=== PATIENT | female | born 1985 | race Caucasian/White ===

== ENCOUNTER 2025-06-09 20:22 | Emergency (ER) | payer MEDICAID, OTHER, SELFPAY ==
[2025-06-09] VITALS (8 sets, daily range): BP systolic 149–212; BP diastolic 70–102; PULSE 81–108; RESP 12–20; TEMP 36.6; O2SAT 97–100; BMI 35.2
--- NOTE | 2025-06-09 20:49 | DI.RAD.S_ITS ---
PROCEDURE: XR CHEST 1V INDICATIONS: Chest Pain TECHNIQUE: One view of the chest was acquired. COMPARISON: None. FINDINGS: Surgical changes and devices: None. Lungs and pleura: Lungs are clear. No pleural effusions or pneumothorax. Mediastinum: Mediastinal contours appear normal. Heart size is normal. Bones and chest wall: No suspicious bony lesions. Overlying soft tissues appear unremarkable. IMPRESSION: No acute cardiopulmonary abnormality is seen. Dictated by: Bart Rouse M.D. on 06/09/2025 at 21:45 Approved by: Bart Rouse M.D. on 06/09/2025 at 21:45
--- NOTE | 2025-06-09 20:49 | EKG_ITS ---
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
[2025-06-09 21:25] LABS: Add Manual Diff / Slide Review NO; Hematocrit 43.5 % (36-46); Hemoglobin 14.5 g/dL (12.0-16.0); INR 1.0 (0.9-1.3); Lymphocytes Absolute Auto 3600 /uL (1100-4500); Mean Corpuscular HGB Conc 33.3 % (30-36); Mean Corpuscular Hemoglobin 27.1 PG (26-34); Mean Corpuscular Volume 81.3 fL (80-100); Platelet Count 253 X10^3/uL (150-400); Prothrombin Time 11.3 SECONDS (9.4-12.5)
[2025-06-09 21:28] LABS: PTT Partial Thromboplastin Tim 27 SECONDS (25.1-36.5)
[2025-06-09 21:29] LABS: Alanine Aminotransferase 61 IU/L (<35); Albumin 4.9 g/dL (3.5-5.0); Albumin Globulin Ratio 1.4 (1.0-2.8); Alkaline Phosphatase 74 U/L (38-126); Blood Urea Nitrogen 10 mg/dL (7-17); Calcium 9.2 mg/dL (8.4-10.2); Carbon Dioxide 21 mmol/L (22-32); Chloride 100 mmol/L (98-107); Creatine Kinase 1034 U/L (30-135); Estimated Glomerular Filt Rate > 60 mL/min (>60); Globulin 3.6 g/dL (1.7-4.1); Glucose 102 mg/dL (70-99); HEMOLYSIS 20 (0-50); Lipase 89 U/L (23-300); Magnesium 1.5 mg/dL (1.6-2.3); Potassium 4.0 mmol/L (3.4-5.1); Sodium 136 mmol/L (137-145); Total Protein 8.5 g/dL (6.3-8.2)
[2025-06-09 21:40] LABS: NT-proBNP (BNP-Adult 18+) 483 pg/mL (<125); Troponin I < 0.012 ng/mL (0.01-0.034)
[2025-06-09] MEDS: ASPIRIN 81 MG CHEW TAB 324 MG PO (22:22)
--- NOTE | 2025-06-09 23:45 | ED.CHESTPAIN ---
HPI - Chest Pain General Chief Complaint: Chest Pain Stated Complaint: PC ref, chest pain, dizzy Time Seen by Provider: 06/09/25 22:24 Source: patient Mode of arrival: Ambulatory Limitations: no limitations History of Present Illness HPI narrative: 40-year-old female with chart history of anxiety, bipolar disorder, ADHD, prior opiate dependence, ulcerative colitis, gastritis, remote cholecystectomy, polycystic ovaries, PID. States that she has one-week duration of cough that had been productive more recently dry, saw her doctor in clinic today had elevated blood pressure, labs were reportedly to be sent, but apparently did not make it to the lab, she is concerned about epigastric area discomfort, worsening abdominal pain, nausea nonbloody emesis. Increasing upper abdominal through the day. Lower chest and upper abdominal discomfort. No known history of coronary artery disease. Also had loosening of tooth of unclear significance, no facial trauma. Related Data Home Medications ?Medication ?Instructions ?Recorded ?Confirmed clonazepam 1 mg tablet 1 mg PO BID ##0 02/13/17 Previous Rx's ?Medication ?Instructions ?Recorded ondansetron 4 mg disintegrating 4 mg sublingual Q4HP PRN ##30 07/12/16 tablet (Zofran ODT) oxycodone 10 mg tablet 10 mg PO Q6HP PRN #30 tabs 02/06/17 oxycodone 10 mg tablet 10 mg PO 5XD PRN #40 tabs 02/13/17 escitalopram oxalate 20 mg tablet 20 mg PO QDAY #60 tabs 02/26/17 (Lexapro) prednisone 20 mg tablet 40 mg (2 x 20 mg) PO DAILY 5 days 06/10/25 #10 tabs sucralfate 1 gram tablet (Carafate) 1 g PO BID #60 tabs 06/10/25 Allergies Allergy/AdvReac Type Severity Reaction Status Date / Time morphine Allergy Mild VOMITING Verified 06/09/25 20:40 Sulfa (Sulfonamide Allergy Mild HYPERVENTIL Verified 06/09/25 20:40 Antibiotics) ATES codeine Allergy Unknown Verified 06/09/25 20:40 topical iodine AdvReac Unknown Uncoded 06/09/25 20:41 Patient History Family History (Updated 11/20/13 @ 00:00 by Maggie Webber) Mother Depression Exam Narrative Exam Narrative: GENERAL: Well-developed patient, in mild distress. HEAD: Atraumatic. Normocephalic. EYES: Pupils equal round and reactive. Extraocular motions intact. No scleral icterus. No injection or drainage. ENT: Nose without bleeding, purulent drainage. Throat without erythema, tonsillar hypertrophy or exudate. Airway patent. NECK: Trachea midline. Non tender CARDIOVASCULAR: Regular rate and rhythm without murmurs, gallops, or rubs. RESPIRATORY: Clear to auscultation. Breath sounds equal bilaterally. No wheezes, rales, or rhonchi. GASTROINTESTINAL: Mild epigastric discomfort, less tenderness left upper quadrant. No tenderness right upper quadrant or lower quadrants or periumbilical. EXTREMITIES: No edema or joint tenderness. BACK: Nontender without deformity or crepitance. No flank tenderness. NEURO: AOx3. Motor functions grossly nonfocal. SKIN: No rash or erythema of visible areas Initial Vital Signs Initial Vital Signs: Vital Signs Temperature 97.8 F 06/09/25 20:39 Pulse Rate 108 H 06/09/25 20:39 Respiratory Rate 20 06/09/25 20:39 Blood Pressure 212/102 H 06/09/25 20:39 Pulse Oximetry 100 06/09/25 20:39 Oxygen Delivery Method Room Air 06/09/25 20:39 Scores HEART Score Heart Score history: Slightly Suspicious Heart Score EKG: Normal Heart Score Age: < 45 years old Heart Score risk factors: No known risk factors Heart Score troponin: < or = to normal limit Heart Score Total: 0 Course Orders Ordered: Discontinued Medications Hydrocodone Bitart/Acetaminophen (Hydrocodone/Acet 5/325 Prepack) 1 bottle MISC DIRECTED ONE Stop: 06/10/25 03:05 Last Admin: 06/10/25 03:16 Dose: 1 bottle Documented By: Albuterol (Albuterol Hfa Prepack) 1 box MISC DIRECTED ONE Stop: 06/10/25 03:13 Last Admin: 06/10/25 03:16 Dose: 1 box Documented By: Albuterol/Ipratropium (Albuterol/Ipratropium 3 Ml Ampul) 3 ml INH NOW ONE Stop: 06/10/25 00:08 Last Admin: 06/10/25 00:29 Dose: 3 ml Documented By: JAIDA Aspirin (Aspirin 81 Mg Chew Tab) 324 mg PO NOW ONE Stop: 06/09/25 20:50 Last Admin: 06/09/25 22:22 Dose: 324 mg Documented By: AMANDA Hydromorphone HCl (Hydromorphone 1 Mg/Ml Syringe) 1 mg IM NOW ONE Stop: 06/10/25 00:12 Last Admin: 06/10/25 01:04 Dose: Not Given Documented By: ANGELA Hydromorphone HCl (Hydromorphone Hcl 0.5 Mg/0.5 Ml Syringe) 0.5 mg IV NOW ONE Stop: 06/10/25 01:04 Last Admin: 06/10/25 01:15 Dose: 0.5 mg Documented By: ANGELA Magnesium Sulfate (Magnesium Sulfate) 2 gm in 50 mls @ 150 mls/hr IV NOW ONE Stop: 06/10/25 01:18 Last Infusion: 06/10/25 02:01 Dose: Infused Documented By: DEBBY Co-signed By: KATYA Admin: 06/10/25 01:40 Dose: 150 mls/hr Documented By: ANGELA Co-signed By: Methylprednisolone (Methylprednisolone Succ 125 Mg/2 Ml Vial) 125 mg IV NOW ONE Stop: 06/10/25 00:08 Last Admin: 06/10/25 01:14 Dose: 125 mg Documented By: ANGELA Ondansetron HCl (Ondansetron 4 Mg Odt) 4 mg SL NOW ONE Stop: 06/10/25 00:12 Last Admin: 06/10/25 01:16 Dose: 4 mg Documented By: ANGELA Pantoprazole Sodium (Pantoprazole 40 Mg Vial) 40 mg IV NOW ONE Stop: 06/10/25 00:08 Last Admin: 06/10/25 01:14 Dose: 40 mg Documented By: ANGELA Sucralfate (Sucralfate 1 Gm/10 Ml Oral Susp) 1 gm PO NOW ONE Stop: 06/10/25 03:03 Last Admin: 06/10/25 03:16 Dose: 1 gm Documented By: Vital Signs Vital signs: Vital Signs - 8 hr 06/09/25 22:25 06/09/25 22:25 06/09/25 22:30 Pulse Rate 101 H Respiratory Rate Blood Pressure 185/92 H 171/84 H Pulse Oximetry 99 Oxygen Delivery Method Oxygen Flow Rate Fraction of Inspired Oxygen 06/09/25 22:30 06/09/25 23:00 06/09/25 23:01 Pulse Rate 98 H 87 Respiratory Rate Blood Pressure 196/91 H Pulse Oximetry 99 98 Oxygen Delivery Method Oxygen Flow Rate Fraction of Inspired Oxygen 06/09/25 23:01 06/09/25 23:30 06/09/25 23:31 Pulse Rate 92 H 81 Respiratory Rate 20 16 Blood Pressure 149/70 H Pulse Oximetry 98 97 Oxygen Delivery Method Room Air Oxygen Flow Rate Fraction of Inspired Oxygen 06/09/25 23:31 06/09/25 23:52 06/09/25 23:52 Pulse Rate 85 83 Respiratory Rate 15 12 Blood Pressure 167/84 H Pulse Oximetry 98 97 Oxygen Delivery Method Room Air Room Air Oxygen Flow Rate Fraction of Inspired Oxygen 06/10/25 00:00 06/10/25 00:00 06/10/25 00:29 Pulse Rate 79 85 Respiratory Rate 23 12 Blood Pressure 166/70 H Pulse Oximetry 97 99 Oxygen Delivery Method Room Air Oxygen Flow Rate 0 Fraction of Inspired Oxygen 21 06/10/25 00:30 06/10/25 01:00 06/10/25 01:30 Pulse Rate 82 83 80 Respiratory Rate 18 14 Blood Pressure Pulse Oximetry 98 97 Oxygen Delivery Method Room Air Oxygen Flow Rate Fraction of Inspired Oxygen 06/10/25 01:33 06/10/25 01:33 06/10/25 02:00 Pulse Rate 84 Respiratory Rate Blood Pressure 171/98 H 189/88 H Pulse Oximetry 97 Oxygen Delivery Method Room Air Oxygen Flow Rate Fraction of Inspired Oxygen 06/10/25 02:00 06/10/25 02:32 06/10/25 03:00 Pulse Rate 86 92 H 102 H Respiratory Rate 15 Blood Pressure Pulse Oximetry 96 98 99 Oxygen Delivery Method Room Air Oxygen Flow Rate Fraction of Inspired Oxygen MDM - Chest Pain Lab Data Attestation: I reviewed the patient's lab results. Lab results narrative: White blood cell count 58604, hemoglobin 14.5, platelets adequate. Glucose 102. Normal renal function, serum potassium. Slight low serum carbon dioxide, slight low sodium. Slight transaminitis, other liver functions unremarkable. Lipase normal. Troponin negative. 06/09/25 21:04 06/09/25 21:04 Labs: Lab Results 06/09/25 06/10/25 Range/Units 21:04 01:30 WBC 15.9 H (4.5-11.0) X10^3/uL RBC 5.35 H (4.0-5.2) X10^6/uL Hgb 14.5 (12.0-16.0) g/dL Hct 43.5 (36-46) % MCV 81.3 (80-100) fL MCH 27.1 (26-34) PG MCHC 33.3 (30-36) % RDW 14.7 (11.6-14.8) % Plt Count 253 (150-400) X10^3/uL Neut % (Auto) 70.8 (50-75) % Lymph % (Auto) 22.8 L (25-40) % Fleming % (Auto) 5.1 (3-14) % Eos % (Auto) 0.7 L (2-4) % Baso % (Auto) 0.6 (0-2) % Neut # (Auto) 34638 H (6820-2323) /uL Lymph # (Auto) 3600 (2444-4214) /uL Fleming # (Auto) 800 (0-900) /uL Eos # (Auto) 100 (0-450) /uL Baso # (Auto) 100 (0-100) /uL PT 11.3 (9.4-12.5) SECONDS INR 1.0 (0.9-1.3) APTT 27 (25.1-36.5) SECONDS Sodium 136 L (137-145) mmol/L Potassium 4.0 (3.4-5.1) mmol/L Chloride 100 (98-107) mmol/L Carbon Dioxide 21 L (22-32) mmol/L BUN 10 (7-17) mg/dL Creatinine 0.70 (0.52-1.04) mg/dL Estimated GFR > 60 (>60) mL/min BUN/Creatinine Ratio 14.3 (6-22) Glucose 102 H (70-99) mg/dL Calcium 9.2 (8.4-10.2) mg/dL Magnesium 1.5 L (1.6-2.3) mg/dL Total Bilirubin 0.5 (0.2-1.3) mg/dL AST 85 H (14-36) IU/L ALT 61 H (<35) IU/L Alkaline Phosphatase 74 (38-126) U/L Total Creatine Kinase 1034 H (30-135) U/L Troponin I < 0.012 0.020 (0.01-0.034) ng/mL NT-Pro-B Natriuret Pep 483 H (<125) pg/mL Total Protein 8.5 H (6.3-8.2) g/dL Albumin 4.9 (3.5-5.0) g/dL Globulin 3.6 (1.7-4.1) g/dL Albumin/Globulin Ratio 1.4 (1.0-2.8) Lipase 89 (23-300) U/L Imaging Data CT scan - abdomen/pelvis: Radiologist's Impression: [address] [address] [address] Scan Report Signed Patient: Kika Faust MR#: [id number] : 1985 Acct:[id number] Age/Sex: 40 / F Date of Service: 06/10/25 Loc: ED Accession Number: [id number] Procedure: CT abdomen pelvis wo con Ordering Provider: Ozzie Nolasco MD PROCEDURE: CT ABDOMEN PELVIS WO CON INDICATIONS: epig pain TECHNIQUE: CT of the abdomen and pelvis was obtained without intravenous contrast. Coronal and sagittal reformats were performed. For radiation dose reduction, the following was used: automated exposure control, adjustment of mA and/or kV according to patient size. COMPARISON: None. FINDINGS: Image quality: Diagnostic. Lower Chest: No significant findings. ABDOMEN: Liver: No contour-deforming mass. Hepatic steatosis. Gallbladder: Post cholecystectomy Biliary ducts: No biliary dilation. Pancreas: No ductal dilation. Spleen: Size is within normal limits. Adrenal Glands: No adrenal nodules. Kidneys and Ureters: No hydronephrosis. No contour-deforming mass. Stomach and Bowel: Normal colonic caliber, without significant wall thickening. Normal retrocecal appendix. Peritoneum: No abnormal intraperitoneal fluid. No free air. Ventral Wall: Small fat containing periumbilical hernia without adjacent stranding to suggest strangulation. Abdominal Nodes: No retroperitoneal or mesenteric adenopathy by size criteria. Vessels: Aorta and inferior vena cava are normal in size. PELVIS: Pelvic Organs: Unremarkable. Bladder: Unremarkable. Pelvic Nodes: No enlarged lymph nodes. Miscellaneous: No inguinal hernias are seen. Bones: No aggressive osseous abnormality. IMPRESSION: 1. Small fat containing periumbilical hernia without CT findings of strangulation. 2. Hepatic steatosis. Dictated by: aBrt Rouse M.D. on 06/10/2025 at 1:32 Approved by: Bart Rouse M.D. on 06/10/2025 at 1:34 Chest x-ray: Radiologist's Impression: [address] [address] XRay Report Signed Patient: Kika Faust MR#: [id number] : 1985 Acct:[id number] Age/Sex: 40 / F Date of Service: 06/09/25 Loc: ED Accession Number: [id number] Procedure: XR chest 1V Ordering Provider: Ruddy Ludwig MD PROCEDURE: XR CHEST 1V INDICATIONS: Chest Pain TECHNIQUE: One view of the chest was acquired. COMPARISON: None. FINDINGS: Surgical changes and devices: None. Lungs and pleura: Lungs are clear. No pleural effusions or pneumothorax. Mediastinum: Mediastinal contours appear normal. Heart size is normal. Bones and chest wall: No suspicious bony lesions. Overlying soft tissues appear unremarkable. IMPRESSION: No acute cardiopulmonary abnormality is seen. Dictated by: Bart Rouse M.D. on 06/09/2025 at 21:45 Approved by: Bart Rouse M.D. on 06/09/2025 at 21:45 ECG Data Attestation: I personally reviewed and interpreted this ECG as follows: Interpretation: 2056, sinus tachycardia with a rate of 108, no obvious ST segment elevation or depression changes. RI 112, QRS 80, QTC 455. MDM Narrative Medical decision making narrative: 40-year-old female with lower chest upper abdominal discomfort, history of gastritis. Afebrile, sirs screen negative. Some tenderness left upper quadrant and epigastrium. Wheeze on end expiration, recent cough. HEART Score =0. Chest x-ray pending. Labs pending. IV Solu-Medrol, nebulized Atrovent. DDx consider recurrence gastritis, JOSE, pancreatitis, biliary, colitis, muscular, aortic syndrome, ACS, pneumonia, other. Chest x-ray without obvious pulmonary infiltrates or acute changes or fluid overload. See radiology report. Lab data: White blood cell count 23150, hemoglobin 14.5, platelets adequate. Glucose 102. Normal renal function, serum potassium. Slight low serum carbon dioxide, slight low sodium. Slight transaminitis, other liver functions unremarkable. Lipase normal. Troponin negative. CT abdomen and pelvis shows small umbilical hernia not incarcerated/strangulated, no acute changes. See radiology report. 0230, Lung exam improved, no longer wheezing. Heart rate 90 improved. No oxygen requirement. No respiratory distress. Patient takes pantoprazole, will add oral Carafate, 1st dose given, prescription sent to her pharmacy. Prescription for prednisone 5 day pulse sent to her pharmacy. Albuterol inhaler/spacer advised and dispensed, 2 puffs 4 times daily for the next 1 week and then as needed. Recheck advised later this week with regular provider. Consider outpatient upper endoscopy in follow-up, contact information provided for local general surgery. Discharged home with family. Return precautions discussed. Discharge Plan Departure Patient Disposition: Home Clinical Impression: Acute epigastric pain, History of gastritis, Bilateral wheezing, Acute upper respiratory infection Instructions: DI for Asthma -- Adult, DI for Abdominal Pain-Adult Activity Restrictions/Additional Instructions: History of remote gallbladder surgery, prior gastritis, recent coughing, some slight wheeze on end expiration on lung exam, no oxygen requirement however, and speaking in full sentences without respiratory distress. Breathing treatment given. IV Solu-Medrol given. IV Protonix given to help protect your stomach. Wheezing seemed to go away. Chest x-ray without obvious pneumonia changes. Persisting epigastric area discomfort upper abdomen, with some mild tenderness. CT abdomen and pelvis was done, showing small fat containing periumbilical hernia without strangulation. Consider follow up with General surgery to have upper endoscopy evaluation of your stomach and duodenum, and perhaps to discuss elective surgical repair of the periumbilical hernia that isn't necessarily related to any current discomfort. Prednisone for wheezing to take in the next few days. Continue to take pantoprazole. We will add Carafate additional acid binding medication to help protect your stomach. Continue with your current chronic medications. Recheck with your regular doctor later this week. Follow up with General surgery for above consultations, though you might require referral from your primary care provider. Contact information given for local general surgeon Dr. Amador provided. Return to this/nearest emergency department for any change worsening symptoms or any concerns prior. Prescriptions: New sucralfate [Carafate] 1 gram tablet 1 g PO BID Qty: 60 0RF prednisone 20 mg tablet 40 mg PO DAILY 5 Days Qty: 10 0RF No Action ondansetron [Zofran ODT] 4 MG tablet,disintegrating 4 mg Sublingual Q4HP PRNQty: 30 3RF oxycodone 10 MG tablet 10 mg PO Q6HP PRNQty: 30 0RF clonazepam 1 MG tablet 1 mg PO BID Qty: 0 oxycodone 10 MG tablet 10 mg PO 5XD PRNQty: 40 0RF escitalopram oxalate [Lexapro] 20 MG tablet 20 mg PO QDAY Qty: 60 0RF Referrals: Delta Amador MD [Physician, General Surgery] Stand Alone Forms: Patient Portal/API
[2025-06-10] VITALS (9 sets, daily range): BP systolic 166–189; BP diastolic 70–98; PULSE 79–102; RESP 12–23; O2SAT 96–99
[2025-06-10] MEDS: ALBUTEROL/IPRATROPIUM 3 ML AMPUL INH (00:29)
[2025-06-10] MEDS: methylPREDNISolone succ 125 MG/2 ML VIAL IV (01:14)
[2025-06-10] MEDS: PANTOPRAZOLE 40 MG VIAL IV (01:14)
[2025-06-10] MEDS: ONDANSETRON 4 MG ODT SL (01:16)
--- NOTE | 2025-06-10 01:20 | DI.CT.S_ITS ---
PROCEDURE: CT ABDOMEN PELVIS WO CON INDICATIONS: epig pain TECHNIQUE: CT of the abdomen and pelvis was obtained without intravenous contrast. Coronal and sagittal reformats were performed. For radiation dose reduction, the following was used: automated exposure control, adjustment of mA and/or kV according to patient size. COMPARISON: None. FINDINGS: Image quality: Diagnostic. Lower Chest: No significant findings. ABDOMEN: Liver: No contour-deforming mass. Hepatic steatosis. Gallbladder: Post cholecystectomy Biliary ducts: No biliary dilation. Pancreas: No ductal dilation. Spleen: Size is within normal limits. Adrenal Glands: No adrenal nodules. Kidneys and Ureters: No hydronephrosis. No contour-deforming mass. Stomach and Bowel: Normal colonic caliber, without significant wall thickening. Normal retrocecal appendix. Peritoneum: No abnormal intraperitoneal fluid. No free air. Ventral Wall: Small fat containing periumbilical hernia without adjacent stranding to suggest strangulation. Abdominal Nodes: No retroperitoneal or mesenteric adenopathy by size criteria. Vessels: Aorta and inferior vena cava are normal in size. PELVIS: Pelvic Organs: Unremarkable. Bladder: Unremarkable. Pelvic Nodes: No enlarged lymph nodes. Miscellaneous: No inguinal hernias are seen. Bones: No aggressive osseous abnormality. IMPRESSION: 1. Small fat containing periumbilical hernia without CT findings of strangulation. 2. Hepatic steatosis. Dictated by: Bart Rouse M.D. on 06/10/2025 at 1:32 Approved by: Bart Rouse M.D. on 06/10/2025 at 1:34
[2025-06-10] MEDS: MAGNESIUM SULFATE 2 GM/50 ML PIGGYBACK IV (01:40)
[2025-06-10 02:09] LABS: Troponin I 0.020 ng/mL (0.01-0.034)
[2025-06-10] MEDS: ALBUTEROL HFA PREPACK 1 BOX MISC (03:16)
[2025-06-10] MEDS: SUCRALFATE 1 GM/10 ML ORAL SUSP PO (03:16)
== END 2025-06-10 03:28 | disposition home or self-care (01) ==
PROVIDERS: Emergency Medicine; Emergency Provider Emergency Medicine; Family Provider Family Medicine
DX: R10.13 Epigastric pain (principal); R06.2 Wheezing; J06.9 Acute upper respiratory infection, unspecified; Z87.19 Personal history of other diseases of the digestive system
CPT/HCPCS: 36415; 71045; 74176; 80053; 82550; 83690; 83735; 83880; 84484; 85025; 85610; 85730; 93005; 94640; 96365; 96375; 99284; J1171; J2470; J2919; J3475

== ENCOUNTER 2025-06-12 10:10 | Emergency (ER) | payer OTHER, SELFPAY ==
[2025-06-12] VITALS (20 sets, daily range): BP systolic 156–201; BP diastolic 68–119; PULSE 81–131; RESP 10–30; TEMP 36.8–36.9; O2SAT 94–99; BMI 34.4
--- NOTE | 2025-06-12 10:16 | DI.RAD.S_ITS ---
PROCEDURE: XR CHEST 1V INDICATIONS: Chest Pain TECHNIQUE: One view of the chest was acquired. COMPARISON: [facility], CR, XR CHEST 1V, 06/09/2025, 21:17. FINDINGS: Surgical changes and devices: None. Lungs and pleura: Lungs are clear. No pleural effusions or pneumothorax. Mediastinum: Mediastinal contours appear normal. Heart size is normal. Bones and chest wall: No suspicious bony lesions. Overlying soft tissues appear unremarkable. IMPRESSION: No acute cardiopulmonary abnormality is seen. Approved by: Joselito Lehman M.D. on 06/12/2025 at 10:56
--- NOTE | 2025-06-12 10:17 | EKG_ITS ---
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
[2025-06-12 12:40] LABS: Add Manual Diff / Slide Review NO; Hematocrit 42.3 % (36-46); Hemoglobin 14.1 g/dL (12.0-16.0); Lymphocytes Absolute Auto 1700 /uL (1100-4500); Mean Corpuscular HGB Conc 33.4 % (30-36); Mean Corpuscular Hemoglobin 27.4 PG (26-34); Mean Corpuscular Volume 82.1 fL (80-100); Platelet Count 216 X10^3/uL (150-400)
[2025-06-12 12:45] LABS: Alanine Aminotransferase 204 IU/L (<35); Albumin 4.6 g/dL (3.5-5.0); Albumin Globulin Ratio 1.4 (1.0-2.8); Alkaline Phosphatase 67 U/L (38-126); Blood Urea Nitrogen 11 mg/dL (7-17); Calcium 8.7 mg/dL (8.4-10.2); Carbon Dioxide 22 mmol/L (22-32); Chloride 103 mmol/L (98-107); Estimated Glomerular Filt Rate > 60 mL/min (>60); Globulin 3.4 g/dL (1.7-4.1); Glucose 129 mg/dL (70-99); Magnesium 1.9 mg/dL (1.6-2.3); Potassium 4.0 mmol/L (3.4-5.1); Total Protein 8.0 g/dL (6.3-8.2)
[2025-06-12 12:46] LABS: Creatine Kinase 226 U/L (30-135); HEMOLYSIS 53 (0-50); Lipase 80 U/L (23-300); Sodium 136 mmol/L (137-145)
--- NOTE | 2025-06-12 12:50 | ED.CHESTPAIN ---
HPI - Chest Pain <Catracho Jackson MD - Last Filed: 06/12/25 16:27> General Chief Complaint: Chest Pain Stated Complaint: Chest pain , High blood pressure sent from Dentist Time Seen by Provider: 06/12/25 12:31 History of Present Illness HPI narrative: This is a 40-year-old female complaining of diffuse muscle aches chest tightness, what she describes as a physical sense of ?adrenaline? and hypertension. Reports that a couple of weeks ago she had URI symptoms. Though substantially resolved however for the last few days she has been feeling as above and has been noted to be hypertensive and tachycardic on multiple occasions. She was seen previously at this emergency department on the 09 of June for these symptoms. She has also seen her primary care provider and was seen by a dentist today for a dental problem who told her that she did not have an infected tooth but she was noted to be hypertensive and tachycardic and she used referred to the emergency department. Says that she drinks 2 or 3 drinks a day he has not had any alcohol in the last several days but does not believe that she is withdrawing from alcohol. She takes Suboxone and has not had her dose changed recently and has been taking it. Has a history of being on benzodiazepines for anxiety, tapered off of those successfully. She has not noted fevers. In terms of cardiac risk factors she is a nonsmoker with no family history no history of elevated cholesterol no history of diabetes no history of hypertension. She did also have some vomiting a couple of days ago and she has epigastric pain now. She is complaining of pain in the midline posteriorly at the base of her neck. I reviewed the June 09 emergency department note. Chief complaint at that point was described as epigastric pain she was also noted to be wheezy. She was started on prednisone on that day. She also received IV steroids. Had a CT scan that was unremarkable. Noted to have leukocytosis at 15,000. I reviewed her current medications. She is not presently taking clonazepam. She has taken Suboxone 24 mg daily, Lexapro 20 mg daily, oral contraceptive, spironolactone which she started 2 months ago and Zofran as needed as well as Carafate and Protonix Related Data Home Medications ?Medication ?Instructions ?Recorded ?Confirmed clonazepam 1 mg tablet 1 mg PO BID ##0 02/13/17 Previous Rx's ?Medication ?Instructions ?Recorded ondansetron 4 mg disintegrating 4 mg sublingual Q4HP PRN ##30 07/12/16 tablet (Zofran ODT) oxycodone 10 mg tablet 10 mg PO Q6HP PRN #30 tabs 02/06/17 oxycodone 10 mg tablet 10 mg PO 5XD PRN #40 tabs 02/13/17 escitalopram oxalate 20 mg tablet 20 mg PO QDAY #60 tabs 02/26/17 (Lexapro) prednisone 20 mg tablet 40 mg (2 x 20 mg) PO DAILY 5 days 06/10/25 #10 tabs sucralfate 1 gram tablet (Carafate) 1 g PO BID #60 tabs 06/10/25 Allergies Allergy/AdvReac Type Severity Reaction Status Date / Time morphine Allergy Mild VOMITING Verified 06/09/25 20:40 Sulfa (Sulfonamide Allergy Mild HYPERVENTIL Verified 06/09/25 20:40 Antibiotics) ATES codeine Allergy Unknown Verified 06/09/25 20:40 topical iodine AdvReac Unknown Uncoded 06/09/25 20:41 Patient History <Catracho Jackson MD - Last Filed: 06/12/25 16:27> Family History (Updated 11/20/13 @ 00:00 by Maggie Webber) Mother Depression Social History Smoking Status: Current every day smoker Smoking Status: Current every day smoker Exam <Catracho Jackson MD - Last Filed: 06/12/25 16:27> Narrative Exam Narrative: Alert and appears anxious. Not obviously tremulous, tachycardia is in the low 100s as opposed to 130 at triage, blood pressure is also not alarmingly high at present. Skin is flushed and moist. Pupils are normal size equal and reactive extraocular movements are intact oral mucosa is moist head is atraumatic Neck is supple there is some tenderness at the baseline posteriorly no palpable mass Lungs have scattered wheezes otherwise clear Cardiac tachycardia regular rhythm and rate no murmur or gallop no friction rub Abdomen midepigastric tenderness no guarding or rebound normal bowel sounds Extremities have normal range of motion. Neurologically she is alert oriented moving all 4 extremities Initial Vital Signs Initial Vital Signs: Vital Signs Temperature 98.3 F 06/12/25 10:12 Pulse Rate 131 H 06/12/25 10:12 Respiratory Rate 18 06/12/25 10:12 Blood Pressure 189/119 H 06/12/25 10:12 Pulse Oximetry 99 06/12/25 10:12 Oxygen Delivery Method Room Air 06/12/25 10:12 <Leyla Hermosillo DO - Last Filed: 06/12/25 22:26> Initial Vital Signs Initial Vital Signs: Vital Signs Temperature 98.3 F 06/12/25 10:12 Pulse Rate 131 H 06/12/25 10:12 Respiratory Rate 18 06/12/25 10:12 Blood Pressure 189/119 H 06/12/25 10:12 Pulse Oximetry 99 06/12/25 10:12 Oxygen Delivery Method Room Air 06/12/25 10:12 Course <Catracho Jackson MD - Last Filed: 06/12/25 16:27> Orders Ordered: ED Orders 06/12/25 13:36 CRP [C-Reactive Protein Quant] Stat ESR [Erythrocyte Sedimentation Rate] Stat TSH [Thyroid Stimulating Hormone] Stat 06/12/25 13:45 UA Complete [Urinalysis and Microscopic] Stat tox [Urine Drug Screen, Rapid] Stat Discontinued Medications Diazepam (Diazepam 5 Mg Tablet) 5 mg PO NOW ONE Stop: 06/12/25 12:50 Last Admin: 06/12/25 13:56 Dose: Not Given Documented By: Diazepam (Diazepam 5 Mg Tablet) 5 mg PO NOW ONE Stop: 06/12/25 13:30 Last Admin: 06/12/25 13:38 Dose: 5 mg Documented By: ELIDA Acetaminophen (Ofirmev) 1,000 mg in 100 mls @ 400 mls/hr IV NOW ONE Stop: 06/12/25 15:35 Last Infusion: 06/12/25 16:05 Dose: Infused Documented By: Admin: 06/12/25 15:48 Dose: 400 mls/hr Documented By: Reevaluation(s) Reevaluation #1: Patient is feeling better, tachycardia is resolved and hypertension is improved following diazepam and IV Tylenol. Discussed concern for serotonin syndrome and recommending discontinuation. Patient does not feel she can tolerate that we will try decreasing her dose by 50%. Consultations Consultation #1: Case was discussed with poison control, there was concern for serotonin syndrome. This is a clinical diagnosis, it is possible, Lexapro could certainly cause it and may be interacting with spironolactone which is a new medication. The recommended discontinuation of Lexapro. Given that the patient has been observed for greater than 8 hours following last dose of Lexapro may be discharged. Vital Signs Vital signs: Vital Signs - 8 hr 06/12/25 14:30 06/12/25 14:50 06/12/25 14:50 Temperature Pulse Rate 81 85 Respiratory Rate 20 13 Blood Pressure 185/103 H Pulse Oximetry 94 99 Oxygen Delivery Method Oxygen Flow Rate 06/12/25 14:59 06/12/25 14:59 06/12/25 15:00 Temperature Pulse Rate 82 90 Respiratory Rate 10 L 28 H Blood Pressure 156/68 H 201/102 H Pulse Oximetry 98 99 Oxygen Delivery Method Oxygen Flow Rate 06/12/25 15:01 06/12/25 15:01 06/12/25 15:30 Temperature Pulse Rate 91 H 83 Respiratory Rate 30 H 13 Blood Pressure 201/102 H Pulse Oximetry 99 98 Oxygen Delivery Method Oxygen Flow Rate 06/12/25 15:30 06/12/25 16:00 06/12/25 16:00 Temperature Pulse Rate 90 Respiratory Rate 22 Blood Pressure 165/79 H 168/81 H Pulse Oximetry 97 Oxygen Delivery Method Oxygen Flow Rate 06/12/25 16:30 06/12/25 17:11 Temperature 98.4 F Pulse Rate 94 H Respiratory Rate 23 Blood Pressure 158/78 H Pulse Oximetry 98 97 Oxygen Delivery Method Room Air Oxygen Flow Rate 0 <Leyla Hermosillo, - Last Filed: 06/12/25 22:26> Orders Ordered: ED Orders 06/12/25 13:36 CRP [C-Reactive Protein Quant] Stat ESR [Erythrocyte Sedimentation Rate] Stat TSH [Thyroid Stimulating Hormone] Stat 06/12/25 13:45 UA Complete [Urinalysis and Microscopic] Stat tox [Urine Drug Screen, Rapid] Stat Discontinued Medications Diazepam (Diazepam 5 Mg Tablet) 5 mg PO NOW ONE Stop: 06/12/25 12:50 Last Admin: 06/12/25 13:56 Dose: Not Given Documented By: Diazepam (Diazepam 5 Mg Tablet) 5 mg PO NOW ONE Stop: 06/12/25 13:30 Last Admin: 06/12/25 13:38 Dose: 5 mg Documented By: ELIDA Acetaminophen (Ofirmev) 1,000 mg in 100 mls @ 400 mls/hr IV NOW ONE Stop: 06/12/25 15:35 Last Infusion: 06/12/25 16:05 Dose: Infused Documented By: Admin: 06/12/25 15:48 Dose: 400 mls/hr Documented By: Vital Signs Vital signs: Vital Signs - 8 hr 06/12/25 14:30 06/12/25 14:50 06/12/25 14:50 Temperature Pulse Rate 81 85 Respiratory Rate 20 13 Blood Pressure 185/103 H Pulse Oximetry 94 99 Oxygen Delivery Method Oxygen Flow Rate 06/12/25 14:59 06/12/25 14:59 06/12/25 15:00 Temperature Pulse Rate 82 90 Respiratory Rate 10 L 28 H Blood Pressure 156/68 H 201/102 H Pulse Oximetry 98 99 Oxygen Delivery Method Oxygen Flow Rate 06/12/25 15:01 06/12/25 15:01 06/12/25 15:30 Temperature Pulse Rate 91 H 83 Respiratory Rate 30 H 13 Blood Pressure 201/102 H Pulse Oximetry 99 98 Oxygen Delivery Method Oxygen Flow Rate 06/12/25 15:30 06/12/25 16:00 06/12/25 16:00 Temperature Pulse Rate 90 Respiratory Rate 22 Blood Pressure 165/79 H 168/81 H Pulse Oximetry 97 Oxygen Delivery Method Oxygen Flow Rate 06/12/25 16:30 06/12/25 17:11 Temperature 98.4 F Pulse Rate 94 H Respiratory Rate 23 Blood Pressure 158/78 H Pulse Oximetry 98 97 Oxygen Delivery Method Room Air Oxygen Flow Rate 0 MDM - Chest Pain <Catracho Jackson MD - Last Filed: 06/12/25 16:27> Lab Data Lab results narrative: Mild elevations in AST and ALT, total CK is slightly elevated, lipase is normal, white count is normal, I note that it was elevated on June 09 06/12/25 12:12 06/12/25 12:12 Labs: Lab Results 06/12/25 06/12/25 06/12/25 Range/Units 12:12 13:36 13:45 WBC 10.6 (4.5-11.0) X10^3/uL RBC 5.15 (4.0-5.2) X10^6/uL Hgb 14.1 (12.0-16.0) g/dL Hct 42.3 (36-46) % MCV 82.1 (80-100) fL MCH 27.4 (26-34) PG MCHC 33.4 (30-36) % RDW 14.6 (11.6-14.8) % Plt Count 216 (150-400) X10^3/uL Neut % (Auto) 77.1 H (50-75) % Lymph % (Auto) 15.6 L (25-40) % Saunders % (Auto) 6.1 (3-14) % Eos % (Auto) 0.6 L (2-4) % Baso % (Auto) 0.6 (0-2) % Neut # (Auto) 8200 H (2627-9737) /uL Lymph # (Auto) 1700 (7742-1132) /uL Saunders # (Auto) 600 (0-900) /uL Eos # (Auto) 100 (0-450) /uL Baso # (Auto) 100 (0-100) /uL ESR 11 (0-20) MM/HR Sodium 136 L (137-145) mmol/L Potassium 4.0 (3.4-5.1) mmol/L Chloride 103 (98-107) mmol/L Carbon Dioxide 22 (22-32) mmol/L BUN 11 (7-17) mg/dL Creatinine 0.68 (0.52-1.04) mg/dL Estimated GFR > 60 (>60) mL/min BUN/Creatinine Ratio 16.2 (6-22) Glucose 129 H (70-99) mg/dL Calcium 8.7 (8.4-10.2) mg/dL Magnesium 1.9 (1.6-2.3) mg/dL Total Bilirubin 0.6 (0.2-1.3) mg/dL AST 407 H (14-36) IU/L ALT 204 H (<35) IU/L Alkaline Phosphatase 67 (38-126) U/L Total Creatine Kinase 226 H D (30-135) U/L Troponin I < 0.012 (0.01-0.034) ng/mL C-Reactive Protein 3.5 H (<1.0) mg/dL NT-Pro-B Natriuret Pep 117 (<125) pg/mL Total Protein 8.0 (6.3-8.2) g/dL Albumin 4.6 (3.5-5.0) g/dL Globulin 3.4 (1.7-4.1) g/dL Albumin/Globulin Ratio 1.4 (1.0-2.8) Lipase 80 (23-300) U/L TSH 1.60 (0.47-4.68) uIU/mL Urine Color Yellow Urine Appearance Clear Urine pH 6.5 (4.5-8.0) Ur Specific Henderson 1.015 (1.000-1.035) Urine Protein Trace H (Negative) Urine Glucose (UA) Negative (Negative) g/dL Urine Ketones Trace H (NEGATIVE) Urine Occult Blood Negative (Negative) Urine Nitrate Negative (Negative) Urine Bilirubin Negative (NEGATIVE) Urine Urobilinogen 0.2 (0.2) E.U./dL Ur Leukocyte Esterase Negative (NEGATIVE) Urine RBC 0-1/hpf (0-5/HPF) Urine WBC 0-1/hpf (0-5/HPF) Ur Squamous Epith Cells 0-1 /hpf (0-5/HPF) Urine Bacteria Occasional (0-1) (None) Ur Culture Indicated? Cult not indicated Vol Urine Centrifuged 10ml (spun) U Opiates 300ng/mL cut Negative (Negative) Ur Oxycodone Screen Negative (Negative) Urine Methadone Screen Negative (Negative) Ur Barbiturates Screen Negative (Negative) U Tricyclic Antidepress Negative (Negative) Ur Phencyclidine Scrn Negative (Negative) Ur Amphetamines Screen Negative (Negative) U Methamphetamines Scrn Negative (Negative) Ur MDMA Scrn (Ecstasy) Negative (Negative) U Benzodiazepines Scrn Negative (Negative) Urine Cocaine Screen Negative (Negative) U Marijuana (THC) Screen Positive H (Negative) Urine Specific Henderson (Normal) Ur Creatinine (Normal) 06/12/25 Range/Units 13:45 WBC (4.5-11.0) X10^3/uL RBC (4.0-5.2) X10^6/uL Hgb (12.0-16.0) g/dL Hct (36-46) % MCV (80-100) fL MCH (26-34) PG MCHC (30-36) % RDW (11.6-14.8) % Plt Count (150-400) X10^3/uL Neut % (Auto) (50-75) % Lymph % (Auto) (25-40) % Saunders % (Auto) (3-14) % Eos % (Auto) (2-4) % Baso % (Auto) (0-2) % Neut # (Auto) (9041-1400) /uL Lymph # (Auto) (2090-3148) /uL Saunders # (Auto) (0-900) /uL Eos # (Auto) (0-450) /uL Baso # (Auto) (0-100) /uL ESR (0-20) MM/HR Sodium (137-145) mmol/L Potassium (3.4-5.1) mmol/L Chloride (98-107) mmol/L Carbon Dioxide (22-32) mmol/L BUN (7-17) mg/dL Creatinine (0.52-1.04) mg/dL Estimated GFR (>60) mL/min BUN/Creatinine Ratio (6-22) Glucose (70-99) mg/dL Calcium (8.4-10.2) mg/dL Magnesium (1.6-2.3) mg/dL Total Bilirubin (0.2-1.3) mg/dL AST (14-36) IU/L ALT (<35) IU/L Alkaline Phosphatase (38-126) U/L Total Creatine Kinase (30-135) U/L Troponin I (0.01-0.034) ng/mL C-Reactive Protein (<1.0) mg/dL NT-Pro-B Natriuret Pep (<125) pg/mL Total Protein (6.3-8.2) g/dL Albumin (3.5-5.0) g/dL Globulin (1.7-4.1) g/dL Albumin/Globulin Ratio (1.0-2.8) Lipase (23-300) U/L TSH (0.47-4.68) uIU/mL Urine Color Urine Appearance Urine pH Normal (4.5-8.0) Ur Specific Henderson (1.000-1.035) Urine Protein (Negative) Urine Glucose (UA) (Negative) g/dL Urine Ketones (NEGATIVE) Urine Occult Blood (Negative) Urine Nitrate (Negative) Urine Bilirubin (NEGATIVE) Urine Urobilinogen (0.2) E.U./dL Ur Leukocyte Esterase (NEGATIVE) Urine RBC (0-5/HPF) Urine WBC (0-5/HPF) Ur Squamous Epith Cells (0-5/HPF) Urine Bacteria (None) Ur Culture Indicated? Vol Urine Centrifuged U Opiates 300ng/mL cut (Negative) Ur Oxycodone Screen (Negative) Urine Methadone Screen (Negative) Ur Barbiturates Screen (Negative) U Tricyclic Antidepress (Negative) Ur Phencyclidine Scrn (Negative) Ur Amphetamines Screen (Negative) U Methamphetamines Scrn (Negative) Ur MDMA Scrn (Ecstasy) (Negative) U Benzodiazepines Scrn (Negative) Urine Cocaine Screen (Negative) U Marijuana (THC) Screen (Negative) Urine Specific Henderson Normal (Normal) Ur Creatinine Normal (Normal) ECG Data Attestation: I personally reviewed and interpreted this ECG as follows: (Sinus tachycardia at 117. Possible LVH no acute ST-elevation no QTC prolongation) <Leyla Hermosillo DO - Last Filed: 06/12/25 22:26> Lab Data Labs: Lab Results 06/12/25 06/12/25 06/12/25 Range/Units 12:12 13:36 13:45 WBC 10.6 (4.5-11.0) X10^3/uL RBC 5.15 (4.0-5.2) X10^6/uL Hgb 14.1 (12.0-16.0) g/dL Hct 42.3 (36-46) % MCV 82.1 (80-100) fL MCH 27.4 (26-34) PG MCHC 33.4 (30-36) % RDW 14.6 (11.6-14.8) % Plt Count 216 (150-400) X10^3/uL Neut % (Auto) 77.1 H (50-75) % Lymph % (Auto) 15.6 L (25-40) % Saunders % (Auto) 6.1 (3-14) % Eos % (Auto) 0.6 L (2-4) % Baso % (Auto) 0.6 (0-2) % Neut # (Auto) 8200 H (3711-1898) /uL Lymph # (Auto) 1700 (4649-7456) /uL Saunders # (Auto) 600 (0-900) /uL Eos # (Auto) 100 (0-450) /uL Baso # (Auto) 100 (0-100) /uL ESR 11 (0-20) MM/HR Sodium 136 L (137-145) mmol/L Potassium 4.0 (3.4-5.1) mmol/L Chloride 103 (98-107) mmol/L Carbon Dioxide 22 (22-32) mmol/L BUN 11 (7-17) mg/dL Creatinine 0.68 (0.52-1.04) mg/dL Estimated GFR > 60 (>60) mL/min BUN/Creatinine Ratio 16.2 (6-22) Glucose 129 H (70-99) mg/dL Calcium 8.7 (8.4-10.2) mg/dL Magnesium 1.9 (1.6-2.3) mg/dL Total Bilirubin 0.6 (0.2-1.3) mg/dL AST 407 H (14-36) IU/L ALT 204 H (<35) IU/L Alkaline Phosphatase 67 (38-126) U/L Total Creatine Kinase 226 H D (30-135) U/L Troponin I < 0.012 (0.01-0.034) ng/mL C-Reactive Protein 3.5 H (<1.0) mg/dL NT-Pro-B Natriuret Pep 117 (<125) pg/mL Total Protein 8.0 (6.3-8.2) g/dL Albumin 4.6 (3.5-5.0) g/dL Globulin 3.4 (1.7-4.1) g/dL Albumin/Globulin Ratio 1.4 (1.0-2.8) Lipase 80 (23-300) U/L TSH 1.60 (0.47-4.68) uIU/mL Urine Color Yellow Urine Appearance Clear Urine pH 6.5 (4.5-8.0) Ur Specific Henderson 1.015 (1.000-1.035) Urine Protein Trace H (Negative) Urine Glucose (UA) Negative (Negative) g/dL Urine Ketones Trace H (NEGATIVE) Urine Occult Blood Negative (Negative) Urine Nitrate Negative (Negative) Urine Bilirubin Negative (NEGATIVE) Urine Urobilinogen 0.2 (0.2) E.U./dL Ur Leukocyte Esterase Negative (NEGATIVE) Urine RBC 0-1/hpf (0-5/HPF) Urine WBC 0-1/hpf (0-5/HPF) Ur Squamous Epith Cells 0-1 /hpf (0-5/HPF) Urine Bacteria Occasional (0-1) (None) Ur Culture Indicated? Cult not indicated Vol Urine Centrifuged 10ml (spun) U Opiates 300ng/mL cut Negative (Negative) Ur Oxycodone Screen Negative (Negative) Urine Methadone Screen Negative (Negative) Ur Barbiturates Screen Negative (Negative) U Tricyclic Antidepress Negative (Negative) Ur Phencyclidine Scrn Negative (Negative) Ur Amphetamines Screen Negative (Negative) U Methamphetamines Scrn Negative (Negative) Ur MDMA Scrn (Ecstasy) Negative (Negative) U Benzodiazepines Scrn Negative (Negative) Urine Cocaine Screen Negative (Negative) U Marijuana (THC) Screen Positive H (Negative) Urine Specific Henderson (Normal) Ur Creatinine (Normal) 06/12/25 Range/Units 13:45 WBC (4.5-11.0) X10^3/uL RBC (4.0-5.2) X10^6/uL Hgb (12.0-16.0) g/dL Hct (36-46) % MCV (80-100) fL MCH (26-34) PG MCHC (30-36) % RDW (11.6-14.8) % Plt Count (150-400) X10^3/uL Neut % (Auto) (50-75) % Lymph % (Auto) (25-40) % Saunders % (Auto) (3-14) % Eos % (Auto) (2-4) % Baso % (Auto) (0-2) % Neut # (Auto) (8370-6146) /uL Lymph # (Auto) (1871-9107) /uL Saunders # (Auto) (0-900) /uL Eos # (Auto) (0-450) /uL Baso # (Auto) (0-100) /uL ESR (0-20) MM/HR Sodium (137-145) mmol/L Potassium (3.4-5.1) mmol/L Chloride (98-107) mmol/L Carbon Dioxide (22-32) mmol/L BUN (7-17) mg/dL Creatinine (0.52-1.04) mg/dL Estimated GFR (>60) mL/min BUN/Creatinine Ratio (6-22) Glucose (70-99) mg/dL Calcium (8.4-10.2) mg/dL Magnesium (1.6-2.3) mg/dL Total Bilirubin (0.2-1.3) mg/dL AST (14-36) IU/L ALT (<35) IU/L Alkaline Phosphatase (38-126) U/L Total Creatine Kinase (30-135) U/L Troponin I (0.01-0.034) ng/mL C-Reactive Protein (<1.0) mg/dL NT-Pro-B Natriuret Pep (<125) pg/mL Total Protein (6.3-8.2) g/dL Albumin (3.5-5.0) g/dL Globulin (1.7-4.1) g/dL Albumin/Globulin Ratio (1.0-2.8) Lipase (23-300) U/L TSH (0.47-4.68) uIU/mL Urine Color Urine Appearance Urine pH Normal (4.5-8.0) Ur Specific Henderson (1.000-1.035) Urine Protein (Negative) Urine Glucose (UA) (Negative) g/dL Urine Ketones (NEGATIVE) Urine Occult Blood (Negative) Urine Nitrate (Negative) Urine Bilirubin (NEGATIVE) Urine Urobilinogen (0.2) E.U./dL Ur Leukocyte Esterase (NEGATIVE) Urine RBC (0-5/HPF) Urine WBC (0-5/HPF) Ur Squamous Epith Cells (0-5/HPF) Urine Bacteria (None) Ur Culture Indicated? Vol Urine Centrifuged U Opiates 300ng/mL cut (Negative) Ur Oxycodone Screen (Negative) Urine Methadone Screen (Negative) Ur Barbiturates Screen (Negative) U Tricyclic Antidepress (Negative) Ur Phencyclidine Scrn (Negative) Ur Amphetamines Screen (Negative) U Methamphetamines Scrn (Negative) Ur MDMA Scrn (Ecstasy) (Negative) U Benzodiazepines Scrn (Negative) Urine Cocaine Screen (Negative) U Marijuana (THC) Screen (Negative) Urine Specific Henderson Normal (Normal) Ur Creatinine Normal (Normal) [facility] Narrative Medical decision making narrative: DR. Hermosillo-Lee never evaluated or soft patient. Patient was dispositioned by Discharge Plan Departure Patient Disposition: Home Clinical Impression: Epigastric abdominal pain, Myalgia, Tachycardia Activity Restrictions/Additional Instructions: Emergency department evaluation today is reassuring and I do not think that you need to be hospitalized. I am not fully certain what is causing your symptoms of rapid heart rate and elevated blood pressure but 1 consideration is an adverse effect of your medications. As we discussed, I am concerned that the escitalopram could be causing this possibly interacting with your new medications spironolactone. We recommended discontinuing as citalopram however I understand that you do not feel that this is something that you can tolerate so I recommend cutting the dose in half. I also suggest that you should stop your spironolactone for the moment. Please contact your prescribing doctor to discuss these changes immediately. My concern is that you may have developed serotonin syndrome. Also, in the short term you could restart your clonazepam 1 tablet no more often than twice a day and use it only as needed. You may use acetaminophen (Tylenol) 650-1000 mg 3 to 4 times a day keep your total daily dose to no more than 3000 mg. Continue your other previous home medications and get adequate fluids. Follow up with surgery as planned for endoscopy. If you are having increasing abdominal pain uncontrolled vomiting tremors or persistent rapid heart rate recheck in the emergency department. Make sure that you are getting adequate liquids eat small meals and avoid spicy foods. Prescriptions: No Action ondansetron [Zofran ODT] 4 MG tablet,disintegrating 4 mg Sublingual Q4HP PRNQty: 30 3RF oxycodone 10 MG tablet 10 mg PO Q6HP PRNQty: 30 0RF clonazepam 1 MG tablet 1 mg PO BID Qty: 0 oxycodone 10 MG tablet 10 mg PO 5XD PRNQty: 40 0RF escitalopram oxalate [Lexapro] 20 MG tablet 20 mg PO QDAY Qty: 60 0RF sucralfate [Carafate] 1 gram tablet 1 g PO BID Qty: 60 0RF prednisone 20 mg tablet 40 mg PO DAILY 5 Days Qty: 10 0RF Stand Alone Forms: Patient Portal/API
[2025-06-12 12:57] LABS: NT-proBNP (BNP-Adult 18+) 117 pg/mL (<125); Troponin I < 0.012 ng/mL (0.01-0.034)
--- NOTE | 2025-06-12 13:39 | PC.NURSE ---
Initial valium tab dropped by primary RN, Elizabeth. This was witnessed by this RN (ELIDA). This RN wasted the dropped valium tab with LAKSHMI Johnson. Pharmacy was notified of the dropped/wasted tablet and physician advised, as well, so he could re-order the tablet for administration. This RN covering lunch break of primary RN. New valium order received and given per MAR. Will ensure primary RN documents that initial dropped tablet is marked as not given in the MAR. skill training program coordinator and physician aware.
[2025-06-12 13:56] LABS: Appearance Urine UA CLEAR; Bilirubin Urine UA NEGATIVE (NEGATIVE); Color Urine UA YELLOW; Glucose Urine UA NEGATIVE (Negative); Ketones Urine UA TRACE (NEGATIVE); Leukocyte Esterase Urine UA NEGATIVE (NEGATIVE); Nitrite Urine UA NEGATIVE (Negative); Occult Blood Urine UA NEGATIVE (Negative); Protein Urine UA TRACE (Negative); Specific Gravity Urine UA 1.015 (1.000-1.035); Urobilinogen Urine UA 0.2 E.U./dL (0.2); pH Urine UA 6.5 (4.5-8.0)
--- NOTE | 2025-06-12 13:58 | PC.NURSE ---
Late entry due to lunch break. Dropped medication on floor, was witnessed by rosalio RN and pharmacy notified and wasted in pyxis and put in the cactus, new order obtained from physician and med given by rosalio MARTINS.
[2025-06-12 13:59] LABS: Ur Creatinine Normal (Normal); Ur Specific Gravity Normal (Normal); Urine MDMA Negative (Negative); Urine Methamphetamines Negative (Negative); Urine THC Positive (Negative); Urine Tricyclic Antidepressant Negative (Negative); Urine pH Normal (Normal)
[2025-06-12 14:03] LABS: Culture Indicated Urine Cult Not Indicated
[2025-06-12 14:28] LABS: Thyroid Stimulating Hormone 1.60 uIU/mL (0.47-4.68)
[2025-06-12] MEDS: ACETAMINOPHEN IV 1,000 MG/100 ML VIAL 400 MG IV (15:48)
== END 2025-06-12 16:55 | disposition home or self-care (01) ==
PROVIDERS: Emergency Provider Emergency Medicine; Family Provider Family Medicine
DX: R10.13 Epigastric pain (principal); R00.0 Tachycardia, unspecified; I10 Essential (primary) hypertension; M79.10 Myalgia, unspecified site
CPT/HCPCS: 36415; 71045; 80053; 80305; 81001; 82550; 83690; 83735; 83880; 84443; 84484; 85025; 85651; 86140; 93005; 96365; 99284; J0131

== ENCOUNTER 2025-07-16 15:33 | Emergency (ER) | payer OTHER, SELFPAY ==
[2025-07-16] VITALS (9 sets, daily range): BP systolic 136–215; BP diastolic 70–119; PULSE 69–113; RESP 9–23; TEMP 37.2; O2SAT 94–99; BMI 33.7
--- NOTE | 2025-07-16 16:00 | DI.RAD.S_ITS ---
PROCEDURE: XR CHEST 1V INDICATIONS: Hypertension per notes TECHNIQUE: One view of the chest was acquired. COMPARISON: [facility], CR, XR CHEST 1V, 06/12/2025, 10:35. FINDINGS: Mild bibasilar subsegmental atelectasis some of which may be related to expiratory result. Mild bilateral perihilar and lower lobe peribronchial thickening, some of which may be related expiratory result; however, bronchitis, viral infection, asthma or other process should be considered. Mildly enlarged cardiopericardial silhouette unchanged. No pneumothorax, no pleural effusion, no lobar consolidation IMPRESSION: Mild peribronchial thickening as discussed above. Mildly enlarged cardiopericardial silhouette unchanged. If symptoms persist or worsen, CT chest could be performed. Dictated by: Chris Waldrop M.D. on 07/16/2025 at 17:05 Approved by: Chris Waldrop M.D. on 07/16/2025 at 17:08
--- NOTE | 2025-07-16 16:26 | EKG_ITS ---
[address] [address] Test Date: 2025-07-16 Pat Name: Kika Faust Department: [facility] Room: Gender: Female [employer]: NAY : 1985 Requested By: Order Number: [id number] Reading MD: Faustino Fried MD Measurements Intervals Lawrence Rate: 79 P: 51 VT: 110 QRS: 32 QRSD: 86 T: 31 QT: 386 QTc: 442 Interpretive Statements Sinus rhythm with short VT Electronically Signed On 07-16-2025 17:05:40 PST by Faustino Fried MD
[2025-07-16 16:28] LABS: Add Manual Diff / Slide Review NO; Hematocrit 42.8 % (36-46); Hemoglobin 14.2 g/dL (12.0-16.0); Lymphocytes Absolute Auto 2000 /uL (1100-4500); Mean Corpuscular HGB Conc 33.2 % (30-36); Mean Corpuscular Hemoglobin 27.4 PG (26-34); Mean Corpuscular Volume 82.5 fL (80-100); Platelet Count 214 X10^3/uL (150-400)
--- NOTE | 2025-07-16 16:29 | ED.GENADULT ---
HPI - General Adult General Chief complaint: Hypertension Stated complaint: Sent by phys; blood pressure issues, dizziness Time Seen by Provider: 07/16/25 16:00 Source: patient, RN notes reviewed and old records reviewed Mode of arrival: Ambulatory Limitations: no limitations History of Present Illness HPI narrative: 40-year-old female history of hypertension, PCOS, chronic pain on Suboxone, anxiety and depression . Patient presents with complaint of feeling hot, sweaty, read and clammy feeling anxious occasionally fluttering in her chest. She notes this happened last month around the time of her menses. She states she has had these episodes on and off in the past. She notes that her blood pressure was very high at home today she checked her blood pressure with a home blood pressure cuff. She just call and recently she states similar episode last 1 would be hypertensive and a little tachycardic. She denies any shortness of breath. She has had some nausea but no vomiting. She notes little bit of increased diarrhea but notes she has chronic IBS. She denies any swelling in her extremities. No new urinary changes she states she has chronic frequency. She states they are currently weaning down her spironolactone they recently started her on metformin for PCOS she has been on Suboxone for 9 years, she takes escitalopram with no new changes, does take an oral contraceptive and uses Zofran PRN. Patient states she has had prior cholecystectomy. Notes allergies to sulfa, topical iodine, morphine and codeine. No tobacco, occasional alcohol, no recreational drugs. Patient is switching primary care physicians with follow up with Dr. Barker in September. Related Data Home Medications ?Medication ?Instructions ?Recorded ?Confirmed clonazepam 1 mg tablet 1 mg PO BID ##0 02/13/17 Previous Rx's ?Medication ?Instructions ?Recorded ondansetron 4 mg disintegrating 4 mg sublingual Q4HP PRN ##30 07/12/16 tablet (Zofran ODT) oxycodone 10 mg tablet 10 mg PO Q6HP PRN #30 tabs 02/06/17 oxycodone 10 mg tablet 10 mg PO 5XD PRN #40 tabs 02/13/17 escitalopram oxalate 20 mg tablet 20 mg PO QDAY #60 tabs 02/26/17 (Lexapro) sucralfate 1 gram tablet (Carafate) 1 g PO BID #60 tabs 06/10/25 Allergies Allergy/AdvReac Type Severity Reaction Status Date / Time morphine Allergy Mild VOMITING Verified 07/16/25 15:52 Sulfa (Sulfonamide Allergy Mild HYPERVENTIL Verified 07/16/25 15:52 Antibiotics) ATES codeine Allergy Unknown Verified 07/16/25 15:52 topical iodine AdvReac Unknown Uncoded 07/16/25 15:52 Review of Systems Review of Systems ROS Unobtainable: All systems reviewed & are unremarkable except as noted in HPI and below Patient History Family History Mother Depression Social History Smoking Status: Never smoker Smoking Status: Never smoker Exam Narrative Exam Narrative: GEN: well nourished, well appearing female, alert and oriented x 3, patient appears to be in mild distress. Patient is slightly flushed. No diaphoresis. HEENT: Atraumatic, pupils are equal round reactive to light, extraocular movements are intact, nares are clear, there is no conjunctival pallor. Throat is clear without any exudates, erythema, tonsillar enlargement or uvular deviation, HEART: Regular rate and rhythm without murmur, clicks, rubs. Pulses are equal in upper and lower extremities LUNGS:Lungs clear to auscultation, no wheezes, rales, crackles, chest moves symmetrically ABD:bowel sounds normal, soft, non-tender, no guarding, rebound, rigidity, no masses noted, no hepatosplenomegaly :No CVA tenderness. MSCL: Non-tender, no muscle atrophy, muscles strength 5/5 upper and lower extremities, full range of motion, normal gait NEURO:CN 2-12 intact, sensation normal. Initial Vital Signs Initial Vital Signs: Vital Signs Temperature 98.9 F 07/16/25 15:42 Pulse Rate 113 H 07/16/25 15:42 Respiratory Rate 20 07/16/25 15:42 Blood Pressure 215/119 H 07/16/25 15:42 Pulse Oximetry 99 07/16/25 15:42 Oxygen Delivery Method Room Air 07/16/25 15:42 Course Orders Ordered: ED Orders 07/16/25 15:20 TSH w/ Reflex to FT4 Stat 07/16/25 16:00 XR chest 1V Stat EKG-12 Lead Stat 07/16/25 16:20 Complete Blood Count AUTO DIFF Stat Comprehensive Metabolic Panel Stat Lipase Stat Magnesium Stat NT-proBNP (BNP-Adult 18+) Stat Troponin I Stat 07/16/25 18:01 EKG-12 Lead Stat Vital Signs Vital signs: Vital Signs - 8 hr 07/16/25 15:42 07/16/25 16:02 07/16/25 16:05 Temperature 98.9 F Pulse Rate 113 H 102 H Respiratory Rate 20 Blood Pressure 215/119 H 195/103 H Pulse Oximetry 99 95 Oxygen Delivery Method Room Air 07/16/25 16:05 07/16/25 16:30 07/16/25 16:30 Temperature Pulse Rate 101 H 93 H Respiratory Rate 14 21 Blood Pressure 177/104 H Pulse Oximetry 97 95 Oxygen Delivery Method 07/16/25 17:00 07/16/25 17:30 07/16/25 17:32 Temperature Pulse Rate 80 69 75 Respiratory Rate 23 21 21 Blood Pressure Pulse Oximetry 95 94 96 Oxygen Delivery Method 07/16/25 17:32 07/16/25 18:00 07/16/25 18:00 Temperature Pulse Rate 75 Respiratory Rate 9 L Blood Pressure 136/70 149/85 H Pulse Oximetry 95 Oxygen Delivery Method 07/16/25 18:30 07/16/25 18:30 Temperature Pulse Rate 73 Respiratory Rate 23 Blood Pressure 179/93 H Pulse Oximetry 99 Oxygen Delivery Method Medical Decision Making Lab Data 07/16/25 16:20 07/16/25 16:20 Labs: Lab Results 07/16/25 07/16/25 Range/Units 15:20 16:20 WBC 9.2 (4.5-11.0) X10^3/uL RBC 5.19 (4.0-5.2) X10^6/uL Hgb 14.2 (12.0-16.0) g/dL Hct 42.8 (36-46) % MCV 82.5 (80-100) fL MCH 27.4 (26-34) PG MCHC 33.2 (30-36) % RDW 14.3 (11.6-14.8) % Plt Count 214 (150-400) X10^3/uL Neut % (Auto) 70.5 (50-75) % Lymph % (Auto) 22.2 L (25-40) % [place] % (Auto) 5.2 (3-14) % Eos % (Auto) 1.3 L (2-4) % Baso % (Auto) 0.8 (0-2) % Neut # (Auto) 6500 (1343-5253) /uL Lymph # (Auto) 2000 (9485-9807) /uL [place] # (Auto) 500 (0-900) /uL Eos # (Auto) 100 (0-450) /uL Baso # (Auto) 100 (0-100) /uL Sodium 137 (137-145) mmol/L Potassium 4.8 (3.4-5.1) mmol/L Chloride 102 (98-107) mmol/L Carbon Dioxide 22 (22-32) mmol/L BUN 12 (7-17) mg/dL Creatinine 0.66 (0.52-1.04) mg/dL Estimated GFR > 60 (>60) mL/min BUN/Creatinine Ratio 18.2 (6-22) Glucose 99 (70-99) mg/dL Calcium 9.9 (8.4-10.2) mg/dL Magnesium 1.5 L (1.6-2.3) mg/dL Total Bilirubin 0.4 (0.2-1.3) mg/dL AST 114 H (14-36) IU/L ALT 102 H (<35) IU/L Alkaline Phosphatase 51 (38-126) U/L Troponin I < 0.012 (0.01-0.034) ng/mL NT-Pro-B Natriuret Pep 116 (<125) pg/mL Total Protein 8.0 (6.3-8.2) g/dL Albumin 5.0 (3.5-5.0) g/dL Globulin 3.0 (1.7-4.1) g/dL Albumin/Globulin Ratio 1.7 (1.0-2.8) Lipase 66 (23-300) U/L TSH 0.74 (0.47-4.68) uIU/mL Point of Care Testing Test Results Negative Urine Dip Bedside Urine Glucose Negative Bedside Urine Bilirubin - Negative Bedside Urine Ketone - Negative Urine Specific [place] 1.010 Bedside Urine Occult Blood - Negative Bedside Urine pH 6.0 Bedside Urine Protein - Negative Bedside Urine Urobilinogen - Negative Bedside Urine Nitrite - Negative Bedside Urine Leukocytes - Negative Esterase Point of care testing: Point of Care Testing Test Results Negative Urine Dip Bedside Urine Glucose Negative Bedside Urine Bilirubin - Negative Bedside Urine Ketone - Negative Urine Specific [place] 1.010 Bedside Urine Occult Blood - Negative Bedside Urine pH 6.0 Bedside Urine Protein - Negative Bedside Urine Urobilinogen - Negative Bedside Urine Nitrite - Negative Bedside Urine Leukocytes - Negative Esterase MDM Narrative Medical decision making narrative: CBC shows normal white count, hemoglobin and platelets, coags are negative, electrolytes BUN and creatinine are normal glucose is 99 magnesium slightly low 1.5, AST is 114 ALT is 102, bilirubin is normal at 0.4 alk-phos is 51 lipase is 66. Troponin is less than 0.012 with a BNP of 116. TSH 1.6, 0.74 T4 is appropriate. Chest x-ray, mild peribronchial thickening as discussed above. Mildly enlarged. Cardiopericardial silhouette unchanged. EKG sinus rhythm with short [place], rate of 79, NJ 110, QRS 86 QTC 442, no acute ST-elevation or depression. EKG shows sinus rhythm with short [place] rate of 79, NJ 110 QRS 86 QTC of [address]-elevation or depression. Repeat EKGs shows sinus rhythm rate of 67, NJ 120 QRS of 98 QTC of 467, no acute or dynamic changes appreciated. Spoke with the patient she is feeling improved blood pressure has been variable but down to 140 systolic here in the department after discussion she has follow up with primary care in September for a new primary care but does has a local primary care she can see sooner. She has been in contact with them both their office and myself have asked her to keep a log of her blood pressure is as she does not normally check them at home but does have a blood pressure cuff now. Discharge Plan Departure Patient Disposition: Home Clinical Impression: Palpitations Activity Restrictions/Additional Instructions: Follow up with your physician for recheck. I would recommend you keep a log of your blood pressure checked daily, check it variety of times keep track of this and share with your physician. You can continue your home medications as prescribed. Please return if you have new chest pain new shortness of breath, any passing out, persistent swelling of your extremities, persistent vomiting or other new or concerning changes. Prescriptions: No Action ondansetron [Zofran ODT] 4 MG tablet,disintegrating 4 mg Sublingual Q4HP PRNQty: 30 3RF oxycodone 10 MG tablet 10 mg PO Q6HP PRNQty: 30 0RF clonazepam 1 MG tablet 1 mg PO BID Qty: 0 oxycodone 10 MG tablet 10 mg PO 5XD PRNQty: 40 0RF escitalopram oxalate [Lexapro] 20 MG tablet 20 mg PO QDAY Qty: 60 0RF sucralfate [Carafate] 1 gram tablet 1 g PO BID Qty: 60 0RF Referrals: Naima Barker MD [Physician, Family Practice] Stand Alone Forms: Patient Portal/API
--- NOTE | 2025-07-16 16:39 | PC.NURSE ---
redness noted to patients face. Pt states she has been feeling flushed for a few days. reports physical anxiety due to her heart palpitations
[2025-07-16 16:51] LABS: Alanine Aminotransferase 102 IU/L (<35); Albumin 5.0 g/dL (3.5-5.0); Albumin Globulin Ratio 1.7 (1.0-2.8); Alkaline Phosphatase 51 U/L (38-126); Blood Urea Nitrogen 12 mg/dL (7-17); Calcium 9.9 mg/dL (8.4-10.2); Carbon Dioxide 22 mmol/L (22-32); Chloride 102 mmol/L (98-107); Estimated Glomerular Filt Rate > 60 mL/min (>60); Globulin 3.0 g/dL (1.7-4.1); Glucose 99 mg/dL (70-99); Lipase 66 U/L (23-300); Magnesium 1.5 mg/dL (1.6-2.3); Sodium 137 mmol/L (137-145); Total Protein 8.0 g/dL (6.3-8.2)
[2025-07-16 16:53] LABS: HEMOLYSIS 82 (0-50); Potassium 4.8 mmol/L (3.4-5.1)
[2025-07-16 17:03] LABS: NT-proBNP (BNP-Adult 18+) 116 pg/mL (<125); Troponin I < 0.012 ng/mL (0.01-0.034)
[2025-07-16 17:59] LABS: TSH w/ Reflex to FT4 0.74 uIU/mL (0.47-4.68)
--- NOTE | 2025-07-16 18:07 | EKG_ITS ---
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
--- NOTE | 2025-07-16 18:21 | PC.NURSE ---
pt reporting her pain in her R side of abdomen is starting to increase. Provider aware. See mar for orders
== END 2025-07-16 18:46 | disposition home or self-care (01) ==
PROVIDERS: Emergency Provider Emergency Medicine; Family Provider Family Medicine
DX: R00.2 Palpitations (principal)
CPT/HCPCS: 36415; 71045; 80053; 81003; 81025; 83690; 83735; 83880; 84443; 84484; 85025; 93005; 99283; 99284